=== PATIENT | female | born 1985 | race African-American/Black ===

== ENCOUNTER 2021-05-22 11:18 | Outpatient (CLI) | payer OTHER, SELFPAY | END 2021-05-22 11:19 | disposition home or self-care (01) | LOC: ANHLAB 11:20 | PROVIDERS: PCP Student in an Organized Health Care Education/Training Program; Visit Provider Student in an Organized Health Care Education/Training Program | DX: O20.9 Hemorrhage in early pregnancy, unspecified (principal); Z3A.00 Weeks of gestation of pregnancy not specified | CPT/HCPCS: 36415; 84702 ==

== ENCOUNTER 2021-05-24 15:59 | Outpatient (CLI) | payer OTHER, SELFPAY ==
[2021-05-24 16:25] LABS: Alanine Aminotransferase 14 U/L (4-35); Albumin Level 4.2 g/dL (3.5-5.1); Alkaline Phosphatase 99 U/L (38-126); Anion Gap 8 mmol/L (8-16); Aspartate Amino Transferase 21 U/L (14-36); Bilirubin,Total 0.2 mg/dL (0.2-1.3); Blood Urea Nitrogen 10 mg/dL (7-17); Calcium 9.8 mg/dL (8.4-10.2); Carbon Dioxide 24 mmol/L (22-30); Chloride 104 mmol/L (98-107); Estimated Glomerular Filt Rate > 60; Glucose 99 mg/dL (65-110); Potassium 4.2 mmol/L (3.4-5.0); Sodium 136 mmol/L (137-145)
== END 2021-05-24 16:00 | disposition home or self-care (01) ==
LOC: ANHLAB 16:01
PROVIDERS: PCP Student in an Organized Health Care Education/Training Program; Visit Provider Student in an Organized Health Care Education/Training Program
DX: O20.0 Threatened abortion (principal)
CPT/HCPCS: 36415; 80053; 84702

== ENCOUNTER 2021-05-25 09:15 | Outpatient (CLI) | payer OTHER, SELFPAY ==
--- NOTE | ~2021-05-25 | US_ITS ---
EXAMINATION: US OB <=14 wk fetus w TV EXAM DATE: 05/25/2021 10:32 INDICATION: O36.80X0 - with inconclusive viability. 1st trimester. Beta hCG 1700. TECHNIQUE: Pelvic obstetrical transabdominal sonogram was performed by a technologist. There are mu ltiple grayscale and Doppler images available for interpretation. There are no earlier studies of th is gestation for comparison. FINDINGS: Uterus measures 8.7 x 6.0 x 5.4 cm, with suspicion of a 2.4 cm fibroid in the anterior makayla metrium. Endometrial stripe measures 7 mm, within normal limits. There is no intrauterine i dentified. Small to moderate amount of free fluid in the pelvis which appears echogenic, could indica te hematocrit. Right adnexa: The ovary measures 3.9 x 3.2 x 1.7 cm, appears morphologically normal but with contiguo us thick-walled appearing cystic structure, possible tubal gestation sac. No yolk sac or pole i dentified within this. Early intrauterine or recent spontaneous are common causes of elevated beta hCG in absence of intrauterine confirmation. Ultrasound can sometimes arti ntify, but never exclude an ectopic in the setting of positive beta hCG. Follow up as kevin anted clinically with serial beta hCG levels or ultrasound. Ovarian vascular flow confirmed. Left adnexa: The ovary measures 3.2 x 1.8 x 2.2 cm and is morphologically normal. Ovarian vascular fl ow confirmed. IMPRESSION: 1. Thick-walled cystic structure contiguous to right ovary, possible right tubal ectopic . S mall to moderate amount of free pelvic hypoechoic fluid, possible hemoperitoneum. Clinical correlatio n. 2. Fibroid. Reviewed, dictated and finalized at location B. ICAL SPECIALIST IMPRESSION: 1. Thick-walled cystic structure contiguous to right ovary, possible right tuba l ectopic . Small to moderate amount of free pelvic hypoechoic fluid, possible hemoperitoneum. Clinical correlation. 2. Fibroid.
== END 2021-05-25 09:16 | disposition home or self-care (01) ==
LOC: ANHIMG 09:21
PROVIDERS: PCP Family Medicine; Visit Provider Student in an Organized Health Care Education/Training Program
DX: O36.80X0 Pregnancy with inconclusive fetal viability, not applicable or unspecified (principal); D25.9 Leiomyoma of uterus, unspecified; Z3A.00 Weeks of gestation of pregnancy not specified
CPT/HCPCS: 76801; 76817; 96372; J9260

== ENCOUNTER 2021-05-28 12:24 | Outpatient (CLI) | payer OTHER, SELFPAY | END 2021-05-28 12:25 | disposition home or self-care (01) | LOC: ANHOBOP 12:27 | PROVIDERS: PCP Family Medicine; Visit Provider Student in an Organized Health Care Education/Training Program | DX: O00.90 Unspecified ectopic pregnancy without intrauterine pregnancy (principal); Z3A.00 Weeks of gestation of pregnancy not specified | CPT/HCPCS: 36415; 84702 ==

== ENCOUNTER 2021-05-31 16:01 | Outpatient (CLI) | payer OTHER, SELFPAY | END 2021-05-31 16:02 | disposition home or self-care (01) | LOC: ANHLAB 16:03 | PROVIDERS: PCP Family Medicine; Visit Provider Student in an Organized Health Care Education/Training Program | DX: O36.80X1 Pregnancy with inconclusive fetal viability, fetus 1 (principal); Z3A.00 Weeks of gestation of pregnancy not specified | CPT/HCPCS: 36415; 84702 ==

== ENCOUNTER 2021-06-06 14:31 | Outpatient (CLI) | payer OTHER, SELFPAY | END 2021-06-06 14:32 | disposition home or self-care (01) | PROVIDERS: PCP Family Medicine; Visit Provider Student in an Organized Health Care Education/Training Program | DX: O00.90 Unspecified ectopic pregnancy without intrauterine pregnancy (principal); Z3A.00 Weeks of gestation of pregnancy not specified | CPT/HCPCS: 36415; 84702 ==

== ENCOUNTER 2021-06-14 14:41 | Outpatient (CLI) | payer OTHER, SELFPAY | END 2021-06-14 14:42 | disposition home or self-care (01) | LOC: ANHLAB 14:42 | PROVIDERS: PCP Family Medicine; Visit Provider Student in an Organized Health Care Education/Training Program | DX: O00.90 Unspecified ectopic pregnancy without intrauterine pregnancy (principal); Z3A.00 Weeks of gestation of pregnancy not specified | CPT/HCPCS: 36415; 84702 ==

== ENCOUNTER 2021-06-21 14:19 | Outpatient (CLI) | payer OTHER, SELFPAY ==
[2021-06-21 15:33] LABS: Beta HCG Quantitative 229.63 mIU/ML
== END 2021-06-21 14:20 | disposition home or self-care (01) ==
LOC: ANHLAB 14:21
PROVIDERS: PCP Family Medicine; Visit Provider Student in an Organized Health Care Education/Training Program
DX: O00.90 Unspecified ectopic pregnancy without intrauterine pregnancy (principal)
CPT/HCPCS: 36415; 84702

== ENCOUNTER 2021-06-28 13:41 | Outpatient (CLI) | payer OTHER, SELFPAY ==
[2021-06-28 14:48] LABS: Beta HCG Quantitative 116.35 mIU/ML
== END 2021-06-28 13:42 | disposition home or self-care (01) ==
PROVIDERS: PCP Family Medicine; Visit Provider Student in an Organized Health Care Education/Training Program
DX: O36.80X2 Pregnancy with inconclusive fetal viability, fetus 2 (principal); Z3A.14 14 weeks gestation of pregnancy
CPT/HCPCS: 36415; 84702

== ENCOUNTER 2021-08-09 14:51 | Outpatient (RCR) | payer OTHER, SELFPAY ==
[2021-07-12 15:08] LABS: Beta HCG Quantitative 17.08 mIU/ML
[2021-07-27 14:52] LABS: Beta HCG Quantitative 6.06 mIU/ML
[2021-08-09 17:15] LABS: Beta HCG Quantitative < 2.39 mIU/ML
== END 2021-10-10 23:59 | disposition home or self-care (01) ==
LOC: ANHLAB 14:51
PROVIDERS: PCP Family Medicine; Visit Provider Student in an Organized Health Care Education/Training Program
DX: O36.80X0 Pregnancy with inconclusive fetal viability, not applicable or unspecified (principal); Z3A.00 Weeks of gestation of pregnancy not specified
CPT/HCPCS: 36415; 84702

== ENCOUNTER 2021-10-14 08:18 | Outpatient (CLI) | payer OTHER, SELFPAY ==
[2021-10-17 06:54] LABS: Progesterone 29.5 ng/mL (***)
== END 2021-10-14 08:19 | disposition home or self-care (01) ==
LOC: ANHLAB 08:19
PROVIDERS: PCP Family Medicine; Visit Provider Student in an Organized Health Care Education/Training Program
DX: Z87.59 Personal history of other complications of pregnancy, childbirth and the puerperium (principal)
CPT/HCPCS: 36415; 84144; 84702

== ENCOUNTER 2021-10-17 16:18 | Outpatient (RCR) | payer OTHER, SELFPAY | END 2022-01-15 23:59 | disposition home or self-care (01) | LOC: ANHLAB 16:18 | PROVIDERS: PCP Family Medicine; Visit Provider Student in an Organized Health Care Education/Training Program | DX: Z87.59 Personal history of other complications of pregnancy, childbirth and the puerperium (principal) | CPT/HCPCS: 36415; 84702 ==

== ENCOUNTER 2021-10-22 06:42 | Emergency (ER) | payer OTHER, SELFPAY ==
--- NOTE | ~2021-10-22 | US_ITS ---
US OB <=14 wk fetus w TV DATE: 10/22/2021 09:19 INDICATION: Five-week . Abdominal pain, cramping. TECHNIQUE: Real-time imaging via transabdominal and transvaginal approaches COMPARISON: 05/25/2021 obstetrical ultrasound FINDINGS: Uterine fibroids measuring up to 2.8 and 1.6 cm are noted. Intrauterine gestational sac is identified with yolk sac but no pole. Gestational sac size is c onsistent with 5 weeks 3 days +/- 3 days estimated gestational age with BRIGID of 06/21/2022. Right ovary measures 3.6 x 2.9 x 1.8 cm, with vascular flow. Left ovary measures 5.5 x 3.6 x 4.5 cm, with vascular flow. 2.8 x 3.3 x 2.2 cm left ovarian cyst. 2.1 x 1.8 x 1.4 cm apparent ruptured cyst. There is mild free fluid IMPRESSION: Early intrauterine gestation with identification of yolk sac but not pole; sac size consistent with 5 weeks 3 days estimated gestational age Mild free fluid in the pelvis Left ovarian cysts including one probably ruptured cyst Uterine fibroids Reviewed, dictated and finalized at Location A. Reviewed, dictated and finalized at location A. IMPRESSION: Early intrauterine gestation with identification of yolk sac but no t pole; sac size consistent with 5 weeks 3 days estimated gestational age Mild free fluid in the pelvis Left ovarian cysts including one probably ruptured cyst Uterine fibroids
[2021-10-22 06:50] VITALS: BP 117/79; PULSE 86; RESP 18; TEMP 36.2; O2SAT 100
[2021-10-22 07:25] LABS: Appearance Urine Clear (Clear); Bilirubin Urine Negative (Negative); Blood Urine Negative (Negative); Color Urine Yellow (Yellow); Glucose Urine UA Negative (Negative); Ketones Urine 2+ mg/dL (Negative); Leukocyte Esterase Ur Negative LEU/UL (Negative); Nitrate Urine Negative (Negative); Protein Urine Negative (Negative); Specific Grav Ur 1.025 (1.001-1.035); Urobilinogen Urine 0.2 mg/dL (<2.0)
[2021-10-22 07:26] LABS: Add Urine Microscopic? YES
--- NOTE | 2021-10-22 07:27 | ED.ABDPAIN ---
HPI - Abdominal Pain General Chief Complaint: Abdominal Pain Stated Complaint: abd pain, 5 weeks Time Seen by Provider: 10/22/21 06:50 History of Present Illness HPI narrative: 36-year-old female that is 5 weeks presenting to the emergency department for evaluation of acute onset of lower abdominal pain. Patient states she found out approximately 1 week ago that she was . Patient is G3, P1 with 1 prior ectopic back in June. Denies any vaginal bleeding vaginal discharge. Patient denies any pain with urination. Patient denies any associated nausea vomiting or diarrhea. Patient has had no ultrasounds or OB follow-up with this current . Related Data Home Medications Medication Instructions Recorded Confirmed vit no.95-ferrous tablet PO 10/22/21 fumarate 28 mg-folic acid 800 mcg tablet () Allergies Allergy/AdvReac Type Severity Reaction Status Date / Time No Known Allergies Allergy Verified 10/22/21 06:53 Review of Systems Review of Systems: CONSTITUTIONAL: Denies fever, chills, or sweats. EYES: Denies visual changes, redness, or discharge. ENT: Denies rhinorrhea, congestion, sore throat, or otalgia. CARDIOVASCULAR: Denies chest pain, palpitations, or edema. RESPIRATORY: Denies cough or dyspnea. GASTROINTESTINAL: See HPI GENITOURINARY: Denies dysuria or hematuria. SKIN: Denies rash or itching. MUSCULOSKELETAL: Denies back pain, joint pain, or myalgia. NEUROLOGIC: Denies headache, numbness, or weakness. PMFSH Past Medical History Medical History Vaginal delivery Surgical History Surgical History [place] teeth removed Social History Social History Smoking status: Never smoker Alcohol intake: never Exam Narrative: APPEARANCE: Well appearing, no pain, no distress, well-nourished. HEAD: normocephalic, atraumatic. EYES: PERRLA/EOMI, conjunctivae clear. NECK: Supple. No adenopathy, no masses. RESPIRATORY: Airway patent, respirations nonlabored. Clear to auscultation bilaterally, no rales, rhonchi, wheezing. CARDIOVASCULAR: Regular rate and rhythm without murmurs rubs or gallops. ABDOMINAL: Soft, nontender, nondistended, normal bowel sounds MUSCULOSKELETAL: Moves all extremities. Strength/ROM intact, No edema, No calf tenderness. NEURO: Alert. Cranial nerves II through XII intact. Good gait. Good coordination SKIN: Warm, dry. Normal Color Course Course Emergency Course: Patient reports her pain has improved. Patient denies any complaints at this time. Patient was updated the results of her ultrasound and encouraged to have close follow-up with her NOVELTY CHAIN MAKER Dr Josue. Vital Signs Vital signs: Vital Signs Temperature 97.2 F L 10/22/21 06:50 Pulse Rate 86 10/22/21 06:50 Respiratory Rate 18 10/22/21 06:50 Blood Pressure 117/79 10/22/21 06:50 Pulse Oximetry 100 10/22/21 06:50 Oxygen Delivery Room Air 10/22/21 06:50 Temperature 97.2 F L 10/22/21 06:50 Pulse Rate 75 10/22/21 10:28 Respiratory Rate 18 10/22/21 10:28 Blood Pressure 117/65 10/22/21 10:28 Pulse Oximetry 100 10/22/21 10:28 Oxygen Delivery Room Air 10/22/21 06:50 MDM - Abdominal Pain Lab Data Attestation: I reviewed the patient's lab results. Result diagrams: 10/22/21 07:25 10/22/21 07:25 Labs: Lab Results 10/22/21 10/22/21 10/22/21 Range/Units 07:13 07:25 07:25 WBC 12.1 H (4.5-10.0) K/mm3 RBC 4.54 (4.2-5.4) M/mm3 Hgb 11.6 L (12.0-15.0) g/dL Hct 34.4 L (37.0-47.0) % MCV 75.8 L (80-100) fl MCH 25.6 L (26-34) pg MCHC 33.7 (32-36) g/dl RDW 16.4 H (11.5-14.5) % Plt Count 434 H (150-375) k/mm3 MPV 8.7 (7.4-10.4) fl Immature Gran % (Auto) 0.6 H (0-0.5) % Neut % (Auto)
[2021-10-22 07:28] LABS: Bacteria Urine Trace /hpf; Mucus Urine Rare /lpf; Squamous Epithelial Cell Urine Occasional /hpf (Few); WBC Urine 0-3 /hpf
[2021-10-22 07:31] LABS: Basophils Absolute Auto 0.1 K/mm3 (0.0-0.1); Basophils Percent Auto 0.4 % (0.2-1.2); Eosinophils Absolute Auto 0.1 K/mm3 (0-0.3); Eosinophils Percent Auto 1.1 % (0-4.4); Hematocrit 34.4 % (37.0-47.0); Hemoglobin 11.6 g/dL (12.0-15.0); Immature Granulocyte Absolute 0.07 K/mm3 (0.00-0.031); Immature Granulocyte Percent A 0.6 % (0-0.5); Lymphocytes Absolute Auto 2.83 K/mm3 (0.9-3.2); Lymphocytes Percent Auto 23.4 % (18.3-44.2); Mean Corpuscular HGB Conc 33.7 g/dl (32-36); Mean Corpuscular Hemoglobin 25.6 pg (26-34); Mean Corpuscular Volume 75.8 fl (80-100); Mean Platelet Volume 8.7 fl (7.4-10.4); Monocytes Absolute Auto 0.6 K/mm3 (0.1-0.6); Monocytes Percent Auto 4.6 % (2.6-8.5); Neutrophils Absolute Auto 8.5 K/mm3 (1.3-6.7); Neutrophils Percent Auto 69.9 % (45.5-73.1); Platelet Count Result 434 k/mm3 (150-375); Red Blood Count 4.54 M/mm3 (4.2-5.4); Red Cell Distribution Width 16.4 % (11.5-14.5); White Blood Count 12.1 K/mm3 (4.5-10.0)
[2021-10-22 07:39] LABS: Alanine Aminotransferase 16 U/L (6-35); Albumin Level 4.2 g/dL (3.5-5.1); Alkaline Phosphatase 94 U/L (38-126); Anion Gap 5 mmol/L (8-16); Aspartate Amino Transferase 25 U/L (14-36); Bilirubin,Total 0.2 mg/dL (0.2-1.3); Blood Urea Nitrogen 11 mg/dL (7-17); Calcium 8.9 mg/dL (8.4-10.2); Carbon Dioxide 22 mmol/L (22-30); Chloride 104 mmol/L (98-107); Estimated Glomerular Filt Rate > 60; Glucose 120 mg/dL (65-110); Potassium 3.9 mmol/L (3.4-5.0); Sodium 131 mmol/L (137-145)
[2021-10-22] MEDS: SODIUM CHLORIDE 0.9% IV 1,000 ML 999 ML IV CONT (08:47)
[2021-10-22 10:28] VITALS: BP 117/65; PULSE 75; RESP 18; O2SAT 100
== END 2021-10-22 10:31 | disposition home or self-care (01) ==
PROVIDERS: Emergency Provider Emergency Medicine; PCP Family Medicine
DX: O26.891 Other specified pregnancy related conditions, first trimester (principal); R10.30 Lower abdominal pain, unspecified; O34.81 Maternal care for other abnormalities of pelvic organs, first trimester; N83.202 Unspecified ovarian cyst, left side; O99.891 Other specified diseases and conditions complicating pregnancy; D25.9 Leiomyoma of uterus, unspecified; Z3A.01 Less than 8 weeks gestation of pregnancy
CPT/HCPCS: 36415; 76801; 76817; 80053; 81001; 84702; 85025; 96360; 99284; J7030

== ENCOUNTER 2021-11-07 15:05 | Outpatient (CLI) | payer OTHER, SELFPAY ==
--- NOTE | ~2021-11-07 | US_ITS ---
EXAMINATION: US OB <= 14 weeks fetus DATE: 11/07/2021 15:39 INDICATION: Evaluate viability. History of uterine fibroids. TECHNIQUE: Real-time transabdominal obstetric ultrasound. FINDINGS: Comparison ultrasound dated 10/22/2021 The uterus measures 11.1 x 6.6 x 7.7 cm.. There is an intrauterine gestational sac, with pole i dentified. The crown rump length measures 1.01 cm, which correlates with a estimated gestational age of 7 weeks 1 day. heart tones are identified measuring 150 BPM. There are left ovarian cysts , largest measuring up to 3 cm greatest dimension. Right ovary is not visualized. IMPRESSION: 1. SL IUP with an EGA of 7 weeks, 1 days (EDC by current ultrasound of 06/25/2022). 2: Left ovarian cysts, largest measuring 3 cm, likely corpus luteal cysts. Reviewed, dictated and finalized at location A. IMPRESSION: 1. SL IUP with an EGA of 7 weeks, 1 days (EDC by current ultrasound of ). 2: Left ovarian cysts, largest measuring 3 cm, likely corpus luteal cysts.
== END 2021-11-07 15:06 | disposition home or self-care (01) ==
PROVIDERS: PCP Family Medicine; Visit Provider Student in an Organized Health Care Education/Training Program
DX: Z34.91 Encounter for supervision of normal pregnancy, unspecified, first trimester (principal); Z3A.01 Less than 8 weeks gestation of pregnancy
CPT/HCPCS: 76801

== ENCOUNTER 2021-11-22 14:57 | Outpatient (CLI) | payer OTHER, SELFPAY ==
[2021-11-22 19:16] LABS: Basophils Percent Auto 0.2 % (0.2-1.2); Eosinophils Absolute Auto 0.1 K/mm3 (0-0.3); Eosinophils Percent Auto 0.5 % (0-4.4); Hematocrit 34.3 % (37.0-47.0); Hemoglobin 11.9 g/dL (12.0-15.0); Immature Granulocyte Absolute 0.04 K/mm3 (0.00-0.031); Immature Granulocyte Percent A 0.3 % (0-0.5); Lymphocytes Absolute Auto 3.48 K/mm3 (0.9-3.2); Lymphocytes Percent Auto 29.2 % (18.3-44.2); Mean Corpuscular HGB Conc 34.7 g/dl (32-36); Mean Corpuscular Hemoglobin 25.6 pg (26-34); Mean Corpuscular Volume 73.9 fl (80-100); Mean Platelet Volume 9.6 fl (7.4-10.4); Monocytes Absolute Auto 0.5 K/mm3 (0.1-0.6); Monocytes Percent Auto 4.4 % (2.6-8.5); Neutrophils Absolute Auto 7.8 K/mm3 (1.3-6.7); Neutrophils Percent Auto 65.4 % (45.5-73.1); Platelet Count Result 409 k/mm3 (150-375); Red Blood Count 4.64 M/mm3 (4.2-5.4); Red Cell Distribution Width 16.8 % (11.5-14.5); White Blood Count 11.9 K/mm3 (4.5-10.0)
[2021-11-22 20:01] LABS: Thyroid Stimulating Hormone 0.215 uIU/mL (0.465-4.680)
[2021-11-22 20:08] LABS: Vitamin D 25 Hydroxy 38.8 ng/mL
[2021-11-22 20:10] LABS: HIV 1/2 Ab P24 Ag Result Negative (Negative)
[2021-11-22 20:28] LABS: Hepatitis B Surface Antigen Negative (Negative)
[2021-11-22 20:40] LABS: Hepatitis C Virus Antibody Negative (Negative)
[2021-11-23 07:53] LABS: Rapid Plasma Reagin Non-Reactive (NonReactive)
[2021-11-28 13:53] LABS: Hematocrit 36.9 % (35.0-45.0); Hemoglobin 11.6 g/dL (11.7-15.5); MCH 25.1 pg (27.0-33.0); MCV 79.7 fL (80.0-100.0); RDW 17.8 % (11.0-15.0); Red Blood Cell Count 4.63 Mill/uL (3.80-5.10)
[2021-12-06 18:16] LABS: CF Result NEGATIVE (NEGATIVE); Ethnicity NG
== END 2021-11-22 14:58 | disposition home or self-care (01) ==
PROVIDERS: PCP Family Medicine; Visit Provider Student in an Organized Health Care Education/Training Program
DX: Z34.91 Encounter for supervision of normal pregnancy, unspecified, first trimester (principal); Z3A.01 Less than 8 weeks gestation of pregnancy; N83.292 Other ovarian cyst, left side
CPT/HCPCS: 36415; 81220; 82306; 83021; 84443; 85025; 86592; 86703; 86762; 86787; 86803; 86850; 86900; 86901; 87086; 87340; G0432

== ENCOUNTER 2021-12-15 11:37 | Outpatient (CLI) | payer OTHER, SELFPAY ==
[2021-12-15 11:49] LABS: Immature Reticulocyte Fraction 30.7 % (3.0-15.9); Reticulocyte Hemoglobin Conten 31.9 pg (28.2-35.7); Reticulocyte Percent 2.31 % (0.7-4.3)
[2021-12-15 12:15] LABS: Iron 87 ug/dL (37-170)
[2021-12-15 12:27] LABS: Percent Iron Saturation 18 % (20-50)
[2021-12-15 12:49] LABS: Ferritin 8.83 ng/mL (6.24-137)
== END 2021-12-15 11:38 | disposition home or self-care (01) ==
LOC: ANHLAB 11:38
PROVIDERS: PCP Family Medicine; Visit Provider Student in an Organized Health Care Education/Training Program
DX: D64.9 Anemia, unspecified (principal)
CPT/HCPCS: 36415; 82728; 83540; 83550; 85046

== ENCOUNTER 2022-03-17 09:35 | Outpatient (CLI) | payer OTHER, SELFPAY ==
[2022-03-17 11:03] LABS: Basophils Percent Auto 0.3 % (0.2-1.2); Eosinophils Absolute Auto 0.1 K/mm3 (0-0.3); Eosinophils Percent Auto 0.7 % (0-4.4); Hematocrit 34.2 % (37.0-47.0); Hemoglobin 11.8 g/dL (12.0-15.0); Immature Granulocyte Absolute 0.22 K/mm3 (0.00-0.031); Immature Granulocyte Percent A 1.5 % (0-0.5); Lymphocytes Absolute Auto 2.85 K/mm3 (0.9-3.2); Lymphocytes Percent Auto 19.5 % (18.3-44.2); Mean Corpuscular HGB Conc 34.5 g/dl (32-36); Mean Corpuscular Hemoglobin 28.4 pg (26-34); Mean Corpuscular Volume 82.2 fl (80-100); Mean Platelet Volume 9.6 fl (7.4-10.4); Monocytes Absolute Auto 0.6 K/mm3 (0.1-0.6); Neutrophils Absolute Auto 10.9 K/mm3 (1.3-6.7); Platelet Count Result 267 k/mm3 (150-375); Red Blood Count 4.16 M/mm3 (4.2-5.4); White Blood Count 14.7 K/mm3 (4.5-10.0)
[2022-03-17 11:15] LABS: Glucose 1 Hour PP 50gm Dose 185 mg/dL
== END 2022-03-17 09:36 | disposition home or self-care (01) ==
LOC: ANHLAB 09:36
PROVIDERS: PCP Family Medicine; Visit Provider Student in an Organized Health Care Education/Training Program
DX: Z34.82 Encounter for supervision of other normal pregnancy, second trimester (principal)
CPT/HCPCS: 36415; 82947; 85025

== ENCOUNTER 2022-03-20 07:42 | Outpatient (CLI) | payer OTHER, SELFPAY ==
[2022-03-20 08:12] LABS: Glucose Fasting Gestational 108 mg/dL (>/=95)
[2022-03-20 09:43] LABS: Glucose 1 Hour Gest 211 mg/dL (>/=180)
[2022-03-20 10:48] LABS: Glucose 2 Hour Gest 200 mg/dL (>/= 155)
[2022-03-20 11:45] LABS: Glucose 3 Hour Gest 119 mg/dL (>/=140)
== END 2022-03-20 07:43 | disposition home or self-care (01) ==
LOC: ANHLAB 07:43
PROVIDERS: PCP Family Medicine; Visit Provider Student in an Organized Health Care Education/Training Program
DX: O99.810 Abnormal glucose complicating pregnancy (principal); Z3A.00 Weeks of gestation of pregnancy not specified
CPT/HCPCS: 36415; 82951; 82952

== ENCOUNTER 2022-06-16 10:17 | Outpatient (RCR) | payer OTHER, SELFPAY ==
[2022-05-09 16:22] VITALS: BP 119/60; PULSE 89
[2022-05-19 13:29] VITALS: BP 117/58; PULSE 97
--- NOTE | 2022-05-26 11:29 | PM.OBPNVD ---
OB - PN: Subj Subjective Date/time seen: 05/26/22 11:20 Patient comments: no complaints Narrative: Pt here For scheduled NST, BPP, JEET due to gestational diabetes. She is currently 36 weeks gestation. She reports great movement. She has a reactive NST. Her BPP is 8/8. Her JEET was 6.74 cm, Which is a decrease from 11 1 week ago[address] Consult to [address] Dsouza. Recommend IOL due to oligohydramnios. Discussed these findings and recommendations with patient. She declines induction at this time. also offered overnight observation with NSTs, and oral or IV hydration. She also declines these options. Discussed possible etiology of oligohydramnios and possible outcomes on the . Patient agrees to increase p.o. hydration over the next 24 hours and return tomorrow morning for repeat NST, JEET, and BPP. thoroughly discussed kick counts. Instructed patient to do kick counts 3 times a day and report to Labor and delivery for any significant decrease or for any episodes of no movement over 1 hour. She verbalizes understanding and intends to return tomorrow morning. OB - PN: Obj Data Imaging Radiologist's impression: Impressions Obstetrics US/Biophysical Profile 05/26/22 11:04 IMPRESSION: 1. Single living fetus in vertex presentation. 2. Biophysical profile 8 out of 8. 3. Oligohydramnios. OB - PN A/P Time Spent With Patient Time: Total time spent is greater than 50% in coordination of care (as documented) at patient's floor/unit and/or counseling patient:
--- NOTE | 2022-05-26 11:35 | PM.OBTRLD ---
OB - Triage/Final Diagnosis Visit Information Reason for evaluation: other (Scheduled NST, BPP, and JEET. See OB note. ) Comments/Additional reasons for admission: I have assessed the risk for this patient, Ze Storey, and determined that she would benefit from observation care.
[2022-05-26 12:15] VITALS: BP 115/60; PULSE 99
[2022-05-27 14:46] VITALS: BP 107/66; PULSE 90
[2022-05-30 16:00] VITALS: BP 111/66; PULSE 79
[2022-06-02 12:32] VITALS: BP 118/58; PULSE 92
[2022-06-06 14:52] VITALS: BP 112/54; PULSE 96
--- NOTE | 2022-06-06 15:45 | PC.NURSE ---
Called Dr. Myers with ultrasound report. September D/C home.
[2022-06-09 13:34] VITALS: BP 124/57; PULSE 105
[2022-06-13 11:15] VITALS: BP 115/63; PULSE 92
--- NOTE | 2022-06-13 11:55 | PC.NURSE ---
Dr. Myers informed of variable decel that occurred late in contraction followed by 20 mins of minimal variability, but now reactive. Pt has an JEET scheduled. Discussed contractions and no further decels. wants pt to be monitored for 2 hrs from her decel and add a BPP. OK to let pt eat.
--- NOTE | 2022-06-13 14:20 | PC.NURSE ---
Pt back from U/S and monitor reapplied. BPP 12/11.
--- NOTE | 2022-06-13 14:51 | PC.NURSE ---
Dr. Myers informed BPP 12/11 and JEET 16.8 cm. No further decels. OK to discharge to home and keep NST's and JEET's twice weekly.
[2022-06-13 14:52] VITALS: BP 115/63; PULSE 86
--- NOTE | ~2022-06-16 | US_ITS ---
EXAMINATION: US OB limited DATE: 05/09/2022 16:09 INDICATION: Gestational diabetes, evaluate JEET. TECHNIQUE: Real-time ultrasound of the pelvis was performed. COMPARISON: 11/07/2021. FINDINGS: There is a single living fetus in vertex presentation, longitudinal lie. The placenta is normal and fundal. heart rate is 134 beats per minute (bpm). The amniotic fluid index is 10.6 cm, which is low-normal (5th to 95th percentile range is 8.3 to 24.5 cm). IMPRESSION: 1. Single living fetus in vertex presentation. 2. Fundal placenta. 3. JEET 10.6 cm. Reviewed, dictated and finalized at location K. TH AND SAFETY COORDINATOR
--- NOTE | ~2022-06-16 | US_ITS ---
US OB limited DATE: 06/16/2022 11:10 INDICATION: Gestational diabetes mellitus. Check amniotic fluid index. TECHNIQUE: Real-time imaging and Doppler analysis COMPARISON: June 13, 2022 Limited obstetrical ultrasound examination with biophysical profile FINDINGS: Live coleman intrauterine gestation, fetus in longitudinal lie, vertex presentation. Feta l heart rate of 143 bpm. Posterior placenta. Subjectively normal amount of amniotic fluid. Amniotic fluid index measures 15.6 cm, within normal range. (5th percentile JEET: 7.2 cm; 95th percent ile JEET: 22.6 cm). IMPRESSION: Normal amniotic fluid index of 15.6 cm Reviewed, dictated and finalized at Location A. Reviewed, dictated and finalized at location A.
--- NOTE | ~2022-06-16 | US_ITS ---
EXAMINATION: US OB limited w BPP DATE: 05/27/2022 14:34 INDICATION: Gestational diabetes, oligohydramnios, evaluate JEET and BPP. TECHNIQUE: Real-time ultrasound of the pelvis was performed. COMPARISON: 05/26/2022. FINDINGS: There is a single living fetus in vertex presentation, longitudinal lie. The placenta is posterior. heart rate is 127 beats per minute (bpm). The amniotic fluid index is 12.99 cm, which is normal (5th to 95th percentile range is 7.7 to 24.9 cm). Biophysical profile performed by the technologist: breathing (30 sec sustained breathing in 30 minutes): 0 out of 2 movement (3 gross body movements in 30 minutes: 2 out of 2 tone (one episode of eocziiz-hqsthsoso-wsshfyd limb movement): out of 2 Amniotic fluid pocket (2 cm): 2 out of 2 Total score: 6 out of 8 IMPRESSION: 1. Single living fetus in vertex presentation. 2. Biophysical profile 6 out of 8 3. Borderline low amniotic fluid volume. Reviewed, dictated and finalized at location K. DRY AID
--- NOTE | ~2022-06-16 | US_ITS ---
EXAMINATION: US OB limited w BPP DATE: 05/26/2022 11:00 INDICATION: Gestational diabetes. Third trimester. TECHNIQUE: Real-time pelvic ultrasound was performed. COMPARISON: Ultrasound 05/19/2022 FINDINGS: There is a single living fetus in vertex presentation. The placenta is posterior. heart rate i s 141 beats per minute (bpm). The amniotic fluid index is 6.7 cm, which is low (5th percentile is 7.7 cm). Biophysical profile performed by the technologist: breathing (30 sec sustained breathing in 30 minutes): 2 out of 2 movement (3 gross body movements in 30 minutes): 2 out of 2 tone (one episode of pqrfdsc-roggpovtn-sktzuvt limb movement): 2 out of 2 Amniotic fluid pocket (2 cm): 2 out of 2 Total score: 8 out of 8 IMPRESSION: 1. Single living fetus in vertex presentation. 2. Biophysical profile 8 out of 8. 3. Oligohydramnios. Reviewed, dictated and finalized at location A. NCE ASSEMBLER
--- NOTE | ~2022-06-16 | US_ITS ---
EXAMINATION: US OB limited w BPP DATE: 06/02/2022 12:55 OPERATOR BEARER SYSTEMS INDICATION: Gestational diabetes TECHNIQUE: Real-time transabdominal obstetric ultrasound. FINDINGS: Comparison to ultrasound dated 05/30/2022 There is a single living fetus in vertex presentation. The placenta is posterior without placenta pr evia. cardiac activity and movement is noted with a heart rate of 150 beats per minute. A FI measures 11.7 cm. Biophysical profile: breathin of 2 movement: 2 of 2 tone: 2 of 2 Amniotic flud pocket: 2 of 2 Total score: 8 of 8 IMPRESSION: 1. Single living intrauterine in vertex presentation. 2: Total biophysical profile score of 8/8. 3: Normal JEET measures 11.7 cm. Reviewed, dictated and finalized at location A. ATOR BEARER SYSTEMS
--- NOTE | ~2022-06-16 | US_ITS ---
EXAMINATION: US OB follow up w BPP DATE: 06/06/2022 15:33 INDICATION: Biophysical profile, amniotic fluid index assessment, and estimated weight during t hird trimester TECHNIQUE: Real-time pelvic ultrasound was performed. The interpreting radiologist was not present fo r the study. COMPARISON: 06/02/2022 FINDINGS: There is a single living fetus in vertex presentation. The placenta is fundal. heart rate is 13 7 beats per minute (bpm). The amniotic fluid index is 13.3 cm which is normal (normal range: 7.5 cm t o 24.4 cm). Biophysical profile performed by the technologist: breathing (30 sec sustained breathing in 30 minutes): 2 out of 2 movement (3 gross body movements in 30 minutes): 2 out of 2 tone (one episode of magohup-mrpbljzyo-xjxfjxv limb movement): 2 out of 2 Amniotic fluid pocket (2 cm): 2 out of 2 Total score: 8 out of 8 The following biometric data were obtained: Biparietal diameter (BPD): 9.4 cm; head circumference (HC): 32.9 cm; abdominal circumference (AC): 35 .7 cm; femur length (FL): 7.4 cm. These measurements are concordant. Estimated weight is 3621 g +/- 543 g, which correlates with the 88th percentile when 06/23/2021 is used as estimated date of delivery. As single measurements, these parameters are each equal to the following estimated gestational ages w ith ranges of +/- 2 standard deviations: BPD: 38 weeks 3 days +/- 3 weeks 1 days. HC: 37 weeks 3 days +/- 2 weeks 5 days. AC: 39 weeks 5 days +/- 3 weeks 0 days. FL: 38 weeks 0 days +/- 3 weeks 1 days. estimated gestational age based solely on measurements from this exam is 38 weeks 3 days +/- 2 weeks 5 days. IMPRESSION: 1. Single living fetus in vertex presentation. 2. Biophysical profile 8 out of 8. 3. Normal amniotic fluid index. 4. Estimated weight is 3621 g +/- 543 g, which correlates with the 88th percentile when 06/23/19 22 is used as estimated date of delivery. Reviewed, dictated and finalized at location B. ING UNIT OPERATOR IMPRESSION: 1. Single living fetus in vertex presentation. 2. Biophysical profile 8 out of 8. 3. Normal amniotic fluid index. 4. Estimated weight is 3621 g +/- 543 g, which correlates with the 88th p ercentile when 06/23/2021 is used as estimated date of delivery.
--- NOTE | ~2022-06-16 | US_ITS ---
EXAMINATION: US OB limited DATE: 06/09/2022 13:27 INDICATION: Gestational diabetes during third trimester TECHNIQUE: Real-time ultrasound of the pelvis was performed. The interpreting radiologist was not pre sent for the study. COMPARISON: 06/06/2022 FINDINGS: There is a single living fetus in vertex presentation. The placenta is fundal/posterior. Fe ann marie cardiac activity and movement are noted. heart rate is 128 beats per minute (bpm). Th e amniotic fluid index is 11.4 cm which is normal (normal range: 7.3 cm to 23.9 cm). IMPRESSION: 1. Single living fetus in vertex presentation. 2. Normal amniotic fluid index. Reviewed, dictated and finalized at location A. AND POULTRY INSPECTOR
--- NOTE | ~2022-06-16 | US_ITS ---
EXAMINATION: US OB limited w BPP DATE: 06/13/2022 14:47 INDICATION: Gestational diabetes during third trimester TECHNIQUE: Real-time pelvic ultrasound was performed. The interpreting radiologist was not present fo r the study. COMPARISON: None. FINDINGS: There is a single living fetus in vertex presentation. The placenta is fundal. heart rate is 14 4 beats per minute (bpm). The amniotic fluid index is 16.8 cm which is normal (normal range: 7.3 cm c m to 23.9 cm cm). Biophysical profile performed by the technologist: breathing (30 sec sustained breathing in 30 minutes): 2 out of 2 movement (3 gross body movements in 30 minutes): 2 out of 2 tone (one episode of oriwfxo-qtepevfdk-wrljzxz limb movement): 2 out of 2 Amniotic fluid pocket (2 cm): 2 out of 2 Total score: 8 out of 8 IMPRESSION: 1. Single living fetus in vertex presentation. 2. Biophysical profile 8 out of 8. 3. Normal amniotic fluid index. Reviewed, dictated and finalized at location B. NG CONSULTANT
--- NOTE | ~2022-06-16 | US_ITS ---
EXAMINATION: US OB limited DATE: 05/19/2022 13:54 INDICATION: Gestational diabetes. TECHNIQUE: Real-time ultrasound of the pelvis was performed. The interpreting radiologist was not pre sent for the study. COMPARISON: None. FINDINGS: There is a single living fetus in vertex presentation. The placenta is posterior fundal. heart rate is 131 beats per minute (bpm). The amniotic fluid index is 11.8 cm, which is normal (5th%-95%: 7.9-24.9 cm at 35 weeks estimated gestational age). IMPRESSION: 1. Single living fetus in vertex presentation with heart rate of 131 bpm. 2. Normal amniotic fluid index of 11.8 cm. Reviewed, dictated and finalized at location A. R TANKER DRIVER IMPRESSION: 1. Single living fetus in vertex presentation with heart rate of 131 bpm . 2. Normal amniotic fluid index of 11.8 cm.
--- NOTE | ~2022-06-16 | US_ITS ---
EXAMINATION: US OB limited w BPP DATE: 05/30/2022 14:44 INDICATION: Gestational diabetes during third trimester TECHNIQUE: Real-time pelvic ultrasound was performed. The interpreting radiologist was not present fo r the study. COMPARISON: None. FINDINGS: There is a single living fetus in vertex presentation. The placenta is posterior. heart rate i s 128 beats per minute (bpm). Biophysical profile performed by the technologist: breathing (30 sec sustained breathing in 30 minutes): 0 out of 2 movement (3 gross body movements in 30 minutes): 2 out of 2 tone (one episode of xwdpvur-wvsmffhxh-hfjrkxt limb movement): 2 out of 2 Amniotic fluid pocket (2 cm): 2 out of 2 Total score: 6 out of 8 IMPRESSION: 1. Single living fetus in vertex presentation with heart rate of 128 bpm. 2. Biophysical profile 6 out of 8 with no points given for 30 seconds of observed sustained br eathing over the course of 30 minutes observation. Reviewed, dictated and finalized at location B. R RECRUITMENT MANAGER IMPRESSION: 1. Single living fetus in vertex presentation with heart rate of 128 bpm. 2. Biophysical profile 6 out of 8 with no points given for 30 seconds of obser jaylin sustained breathing over the course of 30 minutes observation.
[2022-06-16 10:50] VITALS: BP 121/65; PULSE 91
== END 2022-07-21 19:53 | disposition home or self-care (01) ==
LOC: ANHOBOP 10:17
PROVIDERS: PCP Family Medicine; Visit Provider Obstetrics & Gynecology
DX: O24.419 Gestational diabetes mellitus in pregnancy, unspecified control (principal); Z3A.33 33 weeks gestation of pregnancy; Z3A.35 35 weeks gestation of pregnancy; O41.03X0 Oligohydramnios, third trimester, not applicable or unspecified; Z3A.36 36 weeks gestation of pregnancy; Z3A.37 37 weeks gestation of pregnancy; Z3A.38 38 weeks gestation of pregnancy; Z3A.39 39 weeks gestation of pregnancy
CPT/HCPCS: 59025; 76815; 76816; 76819

== ENCOUNTER 2022-06-16 21:05 | Inpatient (IN) | payer OTHER, SELFPAY ==
[2022-06-16] VITALS (45 sets, daily range): BP systolic 113–144; BP diastolic 56–84; PULSE 78–117; RESP 18; TEMP 36.3; O2SAT 98–100; BMI 31.2
--- NOTE | 2022-06-16 21:25 | LDADM ---
This patient, Ze Storey, was admitted to Labor/Delivery/Recovery 105 on 06/16/22 at 21:05. Plans for labor, pain management and were discussed with patient. Patient/family oriented to hospital policies and general routines including ID bracelet, bed and alarms, visiting hours, pain management, procedures, bathroom and other care routines, personal items, smoking policy, room service/diet and guest tray routines, infant security routines, and visiting hours. Patient/Family are encouraged to report perceived risks to care and to ask questions if they do not understand what they are told or what they should do. See OBIX for further documentation.
[2022-06-16 21:31] LABS: Basophils Percent Auto 0.3 % (0.2-1.2); Eosinophils Percent Auto 0.3 % (0-4.4); Hematocrit 36.7 % (37.0-47.0); Hemoglobin 13.3 g/dL (12.0-15.0); Immature Granulocyte Absolute 0.19 K/mm3 (0.00-0.031); Immature Granulocyte Percent A 1.5 % (0-0.5); Lymphocytes Absolute Auto 2.45 K/mm3 (0.9-3.2); Lymphocytes Percent Auto 18.8 % (18.3-44.2); Mean Corpuscular HGB Conc 36.2 g/dl (32-36); Mean Corpuscular Hemoglobin 29.5 pg (26-34); Mean Corpuscular Volume 81.4 fl (80-100); Monocytes Absolute Auto 0.6 K/mm3 (0.1-0.6); Monocytes Percent Auto 4.5 % (2.6-8.5); Neutrophils Absolute Auto 9.7 K/mm3 (1.3-6.7); Neutrophils Percent Auto 74.6 % (45.5-73.1); Platelet Count Result 274 k/mm3 (150-375); Red Blood Count 4.51 M/mm3 (4.2-5.4)
[2022-06-16] MEDS: LACTATED RINGERS 1,000 ML 125 ML IV CONT ×2 (21:36→22:19)
[2022-06-16 21:43] LABS: Alanine Aminotransferase 21 U/L (6-35); Albumin Level 3.9 g/dL (3.5-5.1); Alkaline Phosphatase 153 U/L (38-126); Anion Gap 10 mmol/L (8-16); Aspartate Amino Transferase 35 U/L (14-36); Bilirubin,Total 0.4 mg/dL (0.2-1.3); Blood Urea Nitrogen 11 mg/dL (7-17); Calcium 9.6 mg/dL (8.4-10.2); Carbon Dioxide 20 mmol/L (22-30); Chloride 105 mmol/L (98-107); Estimated CRCL calculation 85 ml/min; Estimated Glomerular Filt Rate > 60; Glucose 124 mg/dL (65-110); Potassium 4.1 mmol/L (3.4-5.0); Sodium 135 mmol/L (137-145)
--- NOTE | 2022-06-16 21:55 | WPDANESEPP ---
Anes - Eval Pre Procedure Procedure: Labor Epidural Date/Time: 06/16/22 21:55 Surgeon: Lianna Preop Diagnosis: Pain c contractions Pre Op Diagnosis: IOL Patient Data Age: 37 Gender: F Height: 1.6 m Weight: 80 kg Last Vital Signs Temp 36.3 C L 06/16/22 21:30 Pulse 84 06/16/22 21:46 Resp 18 06/16/22 21:30 BP 121/78 06/16/22 21:46 Pulse Ox 100 06/16/22 21:54 O2 Del Method Room Air 06/16/22 21:23 Allergies Allergy/AdvReac Type Severity Reaction Status Date / Time No Known Allergies Allergy Verified 06/15/22 10:20 Home Medications Medication Instructions Recorded Confirmed Type ferrous sulfate 325 mg (65 mg 325 mg PO DAILY #90 tabs 12/21/21 06/16/22 Rx iron) tablet blood sugar diagnostic (OneTouch #100 ea 03/21/22 06/16/22 Rx Verio test strips) blood-glucose meter (OneTouch #1 ea 03/21/22 06/16/22 Rx Verio Flex Meter) lancets 33 gauge (Lite Touch #100 ea 03/21/22 06/16/22 Rx Lancets) vit no.95-ferrous 1 tablet PO DAILY 06/09/22 06/16/22 History fumarate 28 mg-folic acid 800 mcg tablet () Laboratory Tests 06/16/22 06/16/22 06/16/22 21:24 21:24 21:24 WBC 13.0 K/mm3 H K/mm3 (4.5-10.0) RBC 4.51 M/mm3 M/mm3 (4.2-5.4) Hgb 13.3 g/dL g/dL (12.0-15.0) Hct 36.7 % L % (37.0-47.0) MCV 81.4 fl fl (80-100) MCH 29.5 pg pg (26-34) MCHC 36.2 g/dl H g/dl (32-36) RDW 15.0 % H % (11.5-14.5) Plt Count 274 k/mm3 k/mm3 (150-375) MPV 10.0 fl fl (7.4-10.4) Immature Gran % (Auto) 1.5 % H % (0-0.5) Neut % (Auto) 74.6 % H % (45.5-73.1) Lymph % (Auto) 18.8 % % (18.3-44.2) Davis % (Auto) 4.5 % % (2.6-8.5) Eos % (Auto) 0.3 % % (0-4.4) Baso % (Auto) 0.3 % % (0.2-1.2) Lymph # (Auto) 2.45 K/mm3 K/mm3 (0.9-3.2) Davis # (Auto) 0.6 K/mm3 K/mm3 (0.1-0.6) Eos # (Auto) 0.0 K/mm3 K/mm3 (0-0.3) Baso # (Auto) 0.0 K/mm3 K/mm3 (0.0-0.1) Abs Immat Gran (auto) 0.19 K/mm3 H K/mm3 (0.00-0.031) Absolute Neuts (auto) 9.7 K/mm3 H K/mm3 (1.3-6.7) Absolute Nucleated RBC 0.0 K/mm3 K/mm3 (0.0-0.012) Nucleated RBC % 0.0 % % (0.0-0.2) Sodium 135 mmol/L L mmol/L (137-145) Potassium 4.1 mmol/L mmol/L (3.4-5.0) Chloride 105 mmol/L mmol/L (98-107) Carbon Dioxide 20 mmol/L L mmol/L (22-30) Anion Gap 10 mmol/L mmol/L (8-16) BUN 11 mg/dL mg/dL (7-17) Creatinine 0.80 mg/dL mg/dL (0.7-1.0) Estim Creat Clear Calc 85 ml/min ml/min Estimated GFR > 60 (59 - ) Glucose 124 mg/dL H mg/dL (65-110) Calcium 9.6 mg/dL mg/dL (8.4-10.2) Total Bilirubin 0.4 mg/dL mg/dL (0.2-1.3) AST 35 U/L U/L (14-36) ALT 21 U/L U/L (6-35) Alkaline Phosphatase 153 U/L H U/L (38-126) Total Protein 7.0 g/dL g/dL (6.3-8.2) Albumin 3.9 g/dL g/dL (3.5-5.1) RPR Pending Patient hx anesthesia problems: none Family hx anesthesia problems: none Results Review: All pre-operative results and documents have been reviewed as part of the pre-operative evaluation. PMFSH Past Medical History Medical History Vaginal delivery Surgical History Surgical History [place] teeth removed Family History Family History Other Patient denies significant medical history Social History Social History Smoking status: Never smoker Alcohol intake: never Substance use: never Lack of Transportation: No Lack of Food: Never
--- NOTE | 2022-06-16 22:23 | WPDANESEPN ---
Anes - Epidural Procedure Note Date/Time: 06/16/22 22:23 Consent: I have discussed with the patient/family/POA, the placement of an epidural catheter and the use of epidural narcotic/local anesthetic for labor analgesia and/or postoperative pain management, including associated potential risks, benefits, complications and side effects. I have discussed alternative methods of labor analgesia and/or postoperative pain management. The patient/family/POA, understand(s) and wish(es) to proceed with epidural narcotic/local anesthetic for labor analgesia and/or postoperative pain management. Time-Out: A pre-procedural Time-Out was completed immediately before starting the procedure and confirmed: Patient Identification, Site, Procedure, Patient Position and the Availability of Requisite Equipment. Clinical Indications: Pain c contractions Epidural Insertion Note Patient position: sitting Skin prep: chlorhexidine and sterile drape Needle: 18g Tuohy-Schliff Catheter: 20g Unstyleted Technique: Loss of resistance. Level of insertion: L4/5 Catheter skin sharath (cm): 5 Length in epidural space (cm): 10 Skin anesthesia: lidocaine 1% Test dose: 1.5% Lidocaine with 1:[id number] Epi, negative for subarachnoid Inj and negative for intravascular Inj Time of test dose: 22:06 Observations: tolerated well
[2022-06-16 22:28] LABS: Glucose Point of Care 134 mg/dl (65-105)
[2022-06-16 23:15] LABS: Glucose Point of Care 114 mg/dl (65-105)
[2022-06-17] VITALS (69 sets, daily range): BP systolic 87–125; BP diastolic 48–75; PULSE 74–122; RESP 16; TEMP 36.3–37.1; O2SAT 95–100
[2022-06-17] MEDS: ONDANSETRON INJ 4 MG/2 ML VIAL IV PUSH (01:41)
--- NOTE | 2022-06-17 02:23 | WPDHPUPDATE1 ---
History and Physical Update Update Date/Time: 06/17/22 02:23 History and Physical has been reviewed, including an updated exam of the patient. There are NO changes in the patient's condition. Risks, benefits, and alternatives have been discussed and questions answered. Patient agrees to proceed with procedure.
--- NOTE | 2022-06-17 02:23 | WPDOBADMIT ---
Obstetrics - Admit Note Admission Note: record reviewed. No pertinent additions to the history and/or any subsequent changes in the physical findings that are not consistent with the expected course of the were found. Additions to the history and/or subsequent changes in the physical findings follow. None.
[2022-06-17] MEDS: OXYTOCIN 30 UNITS/NS 500 ML 30 UNITS/500 ML BAG 999 UNITS IV CONT (02:52)
--- NOTE | 2022-06-17 02:54 | PM.OBPRVD ---
OB - Delivery Note Procedure Events: Gestational Diabetes Induction method: None Delivery monitor: External FHT and External Uterine Route of delivery: Episiotomy description: None Laceration Description: Perineal - 2nd Degree Delivery repair: chromic Specimen: Yes Quantitative Blood Loss (ml): 500 Anesthesia type: Epidural Disposition: Floor Complications: None Narrative: patient prepped and draped in usual manner for this procedure. Maternal expulsive efforts readily delivered vertex over intact perineum in an occiput posterior position. Nuchal cord was noted and reduced, rest of baby delivered without difficulty and the cord was clamped and cut. Placenta delivered spontaneously with uterus well contracted. Cervix vagina vulva were inspected with second-degree laceration noted. This was repaired using 2-0 chromic in a running interlocking manner to approximate the vaginal tissue and then the deep tissue was approximated as well. Subcuticular layer of 2-0 chromic to approximate the perineal skin. At this point the procedure was considered terminated with immediate postoperative condition of mother baby both excellent. [place] Baby Weeks of gestation at delivery: 39 Infant gender: Male Weight (pounds): 8 Weight (ounces): 7 presentation: vertex position: Right Occiput Posterior Placenta delivery description: Spontaneous Cord Vessel Description: 3 Vessels, Nuchal Cord and Reduced score one minute: 8 score five minutes: 8 AMG Delivery Billing Delivery Delivery: Delivery Charge
[2022-06-17 03:08] LABS: Glucose Point of Care 111 mg/dl (65-105)
[2022-06-17] MEDS: OXYTOCIN 30 UNITS/NS 500 ML 30 UNITS/500 ML BAG 125 UNITS IV CONT (03:20)
[2022-06-17] MEDS: WITCH HAZEL 40 PADS 1 PAD TOPICAL (05:05)
[2022-06-17] MEDS: BENZOCAINE 20% AER SPR (*SP) 56 GM CAN 1 SPRAY TOPICAL (05:05)
--- NOTE | 2022-06-17 06:28 | OBPPTRN ---
06/17/2022 at 0520 Patient transferred to post room #281. Support person present. Oriented to unit, room, information board, rooming in, admission packet and security measures. Patient verbalizes understanding.
[2022-06-17] MEDS: DOCUSATE SODIUM 100 MG CAPSULE PO ×2 (07:57→17:31)
[2022-06-17] MEDS: MULTIVIT/MIN/PREN/FOL AC/IRON TABLET 1 TAB PO (07:57)
[2022-06-17] MEDS: IBUPROFEN 600 MG TABLET PO ×2 (07:57→17:32)
[2022-06-17] MEDS: LANOLIN (LANSINOH) 7.5 GM CREAM 1 APPLIC TOPICAL (07:59)
[2022-06-18 04:22] LABS: Hematocrit 32.3 % (37.0-47.0); Hemoglobin 11.5 g/dL (12.0-15.0)
[2022-06-18 07:45] VITALS: BP 107/58; PULSE 80; RESP 16; TEMP 36.8; O2SAT 98
[2022-06-18] MEDS: DOCUSATE SODIUM 100 MG CAPSULE PO ×2 (09:08→16:52)
[2022-06-18] MEDS: MULTIVIT/MIN/PREN/FOL AC/IRON TABLET 1 TAB PO (09:08)
[2022-06-18] MEDS: IBUPROFEN 600 MG TABLET PO ×2 (09:14→19:53)
[2022-06-18 16:44] LABS: Rapid Plasma Reagin Non-Reactive (NonReactive)
[2022-06-18 18:46] VITALS: BP 121/75; PULSE 79; RESP 18; TEMP 36.8; O2SAT 98
--- NOTE | 2022-06-18 23:23 | PM.OBPNVD ---
OB - PN: Subj Subjective Date/time seen: 06/18/22 0800 Patient comments: pain well controlled, tolerating diet and other (Decreasing lochia.) baby status: doing well and nursing well [place] feeding status: exclusively breast feeding OB - PN: Obj Data Labs 06/18/22 04:16 06/16/22 21:24 Labs: Laboratory Results - last 24 hr 06/16/22 06/18/22 21:24 04:16 Hgb 11.5 L Hct 32.3 L RPR Non-reactive OB - PN A/P Plan day: 1 Plan: routine care Comments: Patient doing well. Continue routine care. Time Spent With Patient Time: Total time spent is greater than 50% in coordination of care (as documented) at patient's floor/unit and/or counseling patient: Review of Systems Review of Systems: All systems reviewed & are unremarkable except as noted in HPI and below Constitutional: Constitutional: Reports no additional constitutional complaints Cardiovascular: Cardiovascular: Denies dyspnea Respiratory: Respiratory: Denies dyspnea Gastrointestinal: Gastrointestinal: Reports no additional gastrointestinal complaints and Denies abdominal pain Genitourinary: Genitourinary: Reports no additional female genitourinary complaints Exam Const: General: no acute distress, alert and awake Resp: Effort & Inspection: normal respiratory effort GI: GI Palp: No Tenderness to palpation present (GI) Other: Fundus nontender, below umbilicus Psych: Appearance: grossly normal Affect: normal affect Other: Abd: fundus firm below umbilicus, nontender Ext: nontender
[2022-06-19 07:35] VITALS: BP 117/51; PULSE 84; RESP 16; TEMP 36.8; O2SAT 98
[2022-06-19] MEDS: DOCUSATE SODIUM 100 MG CAPSULE PO (09:26)
[2022-06-19] MEDS: MULTIVIT/MIN/PREN/FOL AC/IRON TABLET 1 TAB PO (09:26)
--- NOTE | 2022-06-19 10:05 | PM.OBDSVD ---
DS: Admitting Diagnosis Discharge Date 06/19/22 Admitting Diagnosis Labor DS: Discharge Diagnosis Discharge Diagnosis Plan Intrauterine delivered. OB - DS: Summary Hospital Course Hospital Course: Patient admitted in active labor. She had an uncomplicated vaginal delivery. She did well . She was discharged to home on day 2. OB Procedures : Ultrasound OB Procedures Intrapartum: Spontaneous Vag Delivery OB Procedures: : None Peripartum Data Infant Delivery Method: Natural Vaginal Laceration Description: Perineal - 1st Degree complications: none Status at Discharge Functional status at discharge: independent ambulation Time Spent with Patient Time attestation: Total time spent providing and/or coordinating discharge services: Exam Const: General: cooperative Orientation/consciousness: oriented to person, oriented to place and oriented to time HENMT: Face/Nose/Sinus: Normal external nose present Eyes: General: appearance normal, both eyes and all related structures Resp: Effort & Inspection: normal respiratory effort GI: Inspection: normal to inspection Skin: General skin exam: normal color Neuro: General: oriented to person, oriented to place and oriented to time Extrem: General: normal to inspection and no calf tenderness Psych: Appearance: grossly normal Mental Status: mental status grossly normal DS: Data Data Completed and Pending Pending studies at discharge: Pending at discharge 06/17/22 02:51 Surgical [PTH] Routine Labs on day of discharge: Labs from last 24 hours 06/16/22 21:24 RPR Non-reactive Discharge Plan Discharge Attending physician on discharge: Socrates Myers Consulting providers: Mike Arnett ; Lorenzo Reyes Discharging Clinician: Socrates Myers Anticipated Discharge Date/Time: 06/19/22 10:02 Patient Disposition: Home, Self-Care Activity: may shower and pelvic rest Diet: regular Discharge Instructions: Education: Mom and Baby Guide Given to: Mother Follow-Up: Call your delivering provider's office for an appointment to be seen in: 4 Weeks Mom and baby should come to the [facility] for the follow-up appointment. Appointment Date/Time: June 20, 2022 at 10:00 am What to expect at your follow-up visit: Physical Assessment Call [phone] if you are unable to keep your appointment time. BREAST CARE: * Wear a snug supportive bra. * For engorgement discomfort: Breast Feeding: * Apply warm moist washcloths * Express milk as needed to relieve engorgement * Wear loose clothing * For sore nipples: * Identify correct latch-on * Apply warm moist washcloths before and after nursing * Air dry nipples after nursing * May apply Lansinoh cream to nipples PERINEAL CARE: * Until bleeding stops, use your evi bottle after urinating * Change your pad frequently throughout the day * You may take sitz baths several times a day (fill your bathtub with warm water and soak for 20 minutes.) Do NOT bathe in the water * No tub baths until seen by your physician - You may shower ACTIVITY: * Rest as much as possible. * Do not exercise or lift anything heavier than your baby (such as laundry or other children.) * Avoid stairs or driving as much as possible. * Do not put anything into the vagina. No douching, tampons, or sexual activity until seen by physician. NOTIFY PHYSICIAN IF YOU HAVE ANY QUESTIONS OR IF ANY OF THE FOLLOWING SYMPTOMS OCCUR: * If your perineum becomes red, swollen, or more painful than what you have experienced in the hospital. * If your vaginal bleeding becomes foul smelling. * If your vaginal bleeding becomes more heavy than a period or if your bleeding changes from pink to bright red. However, you may pass an occasional walnut-sized clot once or twice for the first week postpa
[2022-06-20 09:55] VITALS: BP 115/72; PULSE 87; RESP 18; TEMP 37; O2SAT 100
== END 2022-06-19 11:55 | disposition home or self-care (01) | DRG 560 ==
LOC: ANHLDR 21:15 → ANHOB2 06-17 05:33
PROVIDERS: Obstetrics & Gynecology; Admitting Provider Obstetrics & Gynecology; PCP Family Medicine; Visit Provider Obstetrics & Gynecology
DX: O24.429 Gestational diabetes mellitus in childbirth, unspecified control (principal); O36.8330 Maternal care for abnormalities of the fetal heart rate or rhythm, third trimester, not applicable or unspecified; O69.81X0 Labor and delivery complicated by cord around neck, without compression, not applicable or unspecified; Z37.0 Single live birth; O70.1 Second degree perineal laceration during delivery; O77.0 Labor and delivery complicated by meconium in amniotic fluid; Z3A.39 39 weeks gestation of pregnancy
CPT/HCPCS: 36415; 80053; 82948; 85014; 85018; 85025; 86592; 86850; 86900; 86901; 88307; A9270; J2405; J2590; J7120

== ENCOUNTER 2024-05-08 15:54 | Emergency (ER) | payer OTHER, SELFPAY ==
--- NOTE | ~2024-05-08 | XR_ITS ---
XR chest 2V Ordering provider: Roni Mohan MD History: 39 years Female with . CP . Comparison: None. FINDINGS: MEDIASTINUM: The cardiac silhouette is not enlarged. LUNGS: No infiltrates, effusions or pneumothorax. OTHER: No free air under the diaphragm. IMPRESSION: No acute cardiopulmonary pathology. Reviewed, dictated and finalized at location A. BUSTER
--- NOTE | 2024-05-08 15:56 | ECG_ITS ---
Test Date: 2024-05-08 16:04:57 Measurements Intervals [place] Rate: 77 P: 20 MN: 154 QRS: 65 QRSD: 85 T: 32 QT: 371 QTc: 421 Interpretive Statements SINUS RHYTHM WITH OCCASIONAL SUPRAVENTRICULAR PREMATURE COMPLEXES POSSIBLE RIGHT VENTRICULAR CONDUCTION DELAY [RSR (QR) IN V1/V2] significant baseline artifact affects interpretation No previous ECG available for comparison Electronically Signed On 05-11-2024 15:11:56 TYPING POOL SUPERVISOR by Carroll Adan M.D.
[2024-05-08 16:00] VITALS: BP 121/67; PULSE 73; RESP 18; TEMP 36.6; O2SAT 100
--- NOTE | 2024-05-08 16:07 | ED.CHESTPAIN ---
HPI - Chest Pain General Chief Complaint: Chest Pain Stated Complaint: chest pain Focused HPI: 39-year-old female presents emergency department for left-sided chest pain that radiates to her back since last night. Patient states she was resting when the chest pain started. She describes it as a dull ache. States it is better when sitting up, worse with palpation. Denies associated shortness of breath, lower extremity edema, hemoptysis, cough or congestion, history of VTE, recent surgery hospitalizations. States her uncle recently of heart disease and she contacted her mom advised to come to the ED. She denies immediate family history of heart disease. Denies smoking. GENERAL: Well-appearing, well-nourished, and in no acute distress. HEAD: Normocephalic, atraumatic. CHEST: Clear to auscultation. ?No respiratory distress. Tenderness to the left chest wall on palpation HEART: Regular rate and rhythm.? NEURO: ?Alert and oriented x3. Patient screened in triage and initial orders placed.? ?Additional care and disposition to be based upon?diagnostic testing and treatment. Related Data Home Medications ?Medication ?Instructions ?Recorded ?Confirmed ?Last Taken ?Type ferrous sulfate 325 mg (65 mg 325 mg PO DAILY 08/29/22 10/16/23 Unknown History iron) tablet (Feosol) Allergies Allergy/AdvReac Type Severity Reaction Status Date / Time No Known Allergies Allergy Verified 05/08/24 15:55 PMFSH Past Medical History Medical History Vaginal delivery Surgical History Surgical History [place] teeth removed Family History Family History Other Patient denies significant medical history Social History Social History Smoking status: Never smoker Alcohol intake: never Substance use: never Lack of Transportation: No Lack of Food: Never True Current Housing: I Have Housing Concerned About Future Housing: No Difficulty Paying Gas/Electric Bills: No Difficulty Paying for Meds: No Currently Unemployed: No Education: Bachelor's Degree Difficulty w/ Childcare or Family Care: No Living arrangements: with family Occupation/Education: occupation Gender identity (if verbalized by the patient): Female Sexual Orientation (if Verbalized by the Patient): Straight or Heterosexual Spiritual care concerns: No Course Vital Signs Vital signs: Vital Signs Temperature 98 F 05/08/24 16:00 Pulse Rate 73 05/08/24 16:00 Respiratory Rate 18 05/08/24 16:00 Blood Pressure 121/67 05/08/24 16:00 Pulse Oximetry 100 05/08/24 16:00 Oxygen Delivery Room Air 05/08/24 16:00 Temperature 98 F 05/08/24 16:00 Pulse Rate 73 05/08/24 16:00 Respiratory Rate 18 05/08/24 16:00 Blood Pressure 121/67 05/08/24 16:00 Pulse Oximetry 100 05/08/24 16:00 Oxygen Delivery Room Air 05/08/24 16:00 MDM - Chest Pain Lab Data 05/08/24 16:08 05/08/24 16:08 Labs: Lab Results 05/08/24 Range/Units 16:08 WBC 11.7 H (4.5-10.0) K/mm3 RBC 4.29 (4.2-5.4) M/mm3 Hgb 11.7 L (12.0-15.0) g/dL Hct 33.9 L (37.0-47.0) % MCV 79.0 L (80-100) fl MCH 27.3 (26-34) pg MCHC 34.5 (32-36) g/dl RDW 15.5 H (11.5-14.5) % Plt Count 405 H (150-375) k/mm3 MPV 9.2 (7.4-10.4) fl Immature Gran % (Auto) 0.5 (0-0.5) % Neut % (Auto) 62.0 (45.5-73.1) % Lymph % (Auto) 29.7 (18.3-44.2) % Lake % (Auto) 6.0 (2.6-8.5) % Eos % (Auto) 1.4 (0-4.4) % Baso % (Auto) 0.4 (0.2-1.2) % Lymph # (Auto) 3.47 H (0.9-3.2) K/mm3 Lake # (Auto) 0.7 H (0.1-0.6) K/mm3 Eos # (Auto) 0.2 (0-0.3) K/mm3 Baso # (Auto) 0.1 (0.0-0.1) K/mm3 Abs Immat Gran (auto) 0.06 H (0.00-0.031) K/mm3 Absolute Neuts (auto) 7.2 H (1.3-6.7) K/mm3 Absolute Nucleated RBC 0.000 (0.0-0.012) K/mm3 Nucleated RBC % 0.0 (0.0-0.2) % PT 13.3 (11.1-14.7) Seconds INR 1.0 APTT 26.1 (22.3-36.8) Seconds Sodium 137 (137-145) mmol/L Potassium 4.6 (3.4-5.0) mmol/L Chloride 110 H (98-107) mmol/L Carbon Dioxide 25 (22-30) mmol/L Anion Gap 2 L (4-12) mmol/L BUN 12 (7-17) mg/dL Creatinine 0.80 (0.7-1.0) mg/dL Estim Creat Clear Calc 76 ml/min Estimated GFR > 60 (59 - ) Glucose 92 (65-110) mg/dL Calcium 9.2 (8.4-10.2) mg/dL Total Bilirubin 0.3 (0.2-1.3) mg/dL AST 17 (14-36) U/L ALT 14 (6-35) U/L Alkaline Phosphatase 88 (38-126) U/L Troponin I < 0.012 (0.000-0.034) ng/mL NT-Pro-B Natriuret Pep < 20 (19.9-100) pg/mL Total Protein 8.0 (6.3-8.2) g/dL Albumin 4.2 (3.5-5.1) g/dL Lipase 82 (23-300) U/L Discharge Plan Discharge Clinical Impression: Chest pain Qualifiers: Chest pain type: unspecified Qualified Code(s): R07.9 - Chest pain, unspecified Patient Disposition: Elopement After Seen by Prov Condition: Stable Patient Language: Upper Sorbian Prescriptions: No Action ferrous sulfate [Feosol] 325 mg (65 mg iron) tablet 325 mg PO DAILY Follow-up/Referrals: Mer,Sebastian Keller MD [Primary Care Provider] -
[2024-05-08 16:15] LABS: Basophils Absolute Auto 0.1 K/mm3 (0.0-0.1); Basophils Percent Auto 0.4 % (0.2-1.2); Eosinophils Absolute Auto 0.2 K/mm3 (0-0.3); Eosinophils Percent Auto 1.4 % (0-4.4); Hematocrit 33.9 % (37.0-47.0); Hemoglobin 11.7 g/dL (12.0-15.0); Immature Granulocyte Absolute 0.06 K/mm3 (0.00-0.031); Immature Granulocyte Percent A 0.5 % (0-0.5); Lymphocytes Absolute Auto 3.47 K/mm3 (0.9-3.2); Lymphocytes Percent Auto 29.7 % (18.3-44.2); Mean Corpuscular HGB Conc 34.5 g/dl (32-36); Mean Corpuscular Hemoglobin 27.3 pg (26-34); Mean Platelet Volume 9.2 fl (7.4-10.4); Monocytes Absolute Auto 0.7 K/mm3 (0.1-0.6); Neutrophils Absolute Auto 7.2 K/mm3 (1.3-6.7); Platelet Count Result 405 k/mm3 (150-375); Red Blood Count 4.29 M/mm3 (4.2-5.4); Red Cell Distribution Width 15.5 % (11.5-14.5); White Blood Count 11.7 K/mm3 (4.5-10.0)
[2024-05-08 16:27] LABS: Alanine Aminotransferase 14 U/L (6-35); Albumin Level 4.2 g/dL (3.5-5.1); Alkaline Phosphatase 88 U/L (38-126); Anion Gap 2 mmol/L (4-12); Aspartate Amino Transferase 17 U/L (14-36); Bilirubin,Total 0.3 mg/dL (0.2-1.3); Blood Urea Nitrogen 12 mg/dL (7-17); Calcium 9.2 mg/dL (8.4-10.2); Carbon Dioxide 25 mmol/L (22-30); Chloride 110 mmol/L (98-107); Estimated CRCL calculation 76 ml/min; Estimated Glomerular Filt Rate > 60; Glucose 92 mg/dL (65-110); Lipase 82 U/L (23-300); Potassium 4.6 mmol/L (3.4-5.0); Sodium 137 mmol/L (137-145)
[2024-05-08 16:36] LABS: Prothrombin Time 13.3 Seconds (11.1-14.7)
[2024-05-08 16:37] LABS: Partial Thromboplastin Time 26.1 Seconds (22.3-36.8)
[2024-05-08 16:39] LABS: NT Pro B Type Natriuretic Pept < 20 pg/mL (19.9-100); Troponin I < 0.012 ng/mL (0.000-0.034)
--- NOTE | 2024-05-08 18:31 | PC.NURSE ---
Pt came up to intake stating she is feeling better and going to f/u w PCP. Exits ED in NAD.
== END 2024-05-08 18:31 | disposition left against medical advice (07) ==
LOC: ANHED 23:04
PROVIDERS: Student in an Organized Health Care Education/Training Program; Emergency Provider Physician Assistant; PCP Family Medicine
DX: R07.9 Chest pain, unspecified (principal); I49.1 Atrial premature depolarization; R94.31 Abnormal electrocardiogram [ECG] [EKG]
CPT/HCPCS: 36415; 71046; 80053; 83690; 83880; 84484; 85025; 85610; 85730; 93005; 99284

== ENCOUNTER 2024-09-29 11:32 | Outpatient (CLI) | payer OTHER, SELFPAY ==
--- OUTSIDE RECORDS SUMMARY | 2024-09-29 11:38 | XMS_ITS | Clinical Summary ---
Author Organization [facility] Address [address] [place] [id number] Phone Care Team Providers Care Flight Technician Name Role Phone Provider, None Primary Care Provider Unavailabl e Allergies No known active allergies Medications No known medications Social History Tobacco Use Types Packs/Day Years Used Date Smoking Tobacco: Never Smokeless Tobacco: Never Alcohol Use Standard Drinks/Week Comments No 0 (1 standard drink = 0.6 oz pur e alcohol) Sexually Active Control Partners Comments Not Currently Comments No Sex and Gender Information Value Date Recorded Sex Assigned at Not on file Legal Sex Female 9:34 PM CDT Gender Identity Not on file Sexual Orientation Not on file Last Filed Vital Signs Vital Sign Reading Time Taken Comments Blood Pressure 120/74 09/10/2018 4:34 PM CDT Pulse 78 09/10/2018 4:34 PM CDT Temperature 37.2 C (98.9 F) 09/10/2018 4:34 PM CDT Respiratory Rate 14 09/10/2018 4:34 PM CDT Oxygen Saturation 99% 09/10/2018 4:34 PM CDT Inhaled Oxygen Concentration - - Weight 68.5 kg (151 lb) 09/10/2018 4:34 PM CDT Height - - Body Mass Index - - Plan of Treatment Health Maintenance Due Date Last Done Comments Hepatitis C Virus (HCV) Screening 1986 TdaP Immunization 1986 Influenza Immunization (#1) 2024 SARS-COV-2 Immunization ( season) 2024 Respiratory Syncytial Virus (RSV) Immunization (Adult) (1 - 1-dose 75+ series) 2061 Hepatitis B Immunization Completed 999, 02/08/1998, 02/04/1997 DTaP/Tdap/Td Immunization Discontinued 2001, 04/06/1991, 03/17/1990, Additional history exists Meningococcal Immunization (ACWY) Aged Out No longer eligible based on patient's age to complete this topic Pneumococcal Immunization Combined Aged Out No longer eligible based on patient's age to complete this topic Rotavirus Immunization Aged Out No lo nger eligible based on patient's age to complete this topic Insurance MEDICAID [employer] Care Teams Flight Technician Relationship Specialty Start Date End Date Provider, None [place] PCP - General 06/14/18
--- OUTSIDE RECORDS SUMMARY | 2024-09-29 11:38 | XMS_ITS | Encounter Summary ---
Author Organization [facility] Address [address] [place] [address] Phone Care Team Providers Care High Lighter Name Role Phone Sebastian Del Angel MD Primary Care Provider [phone] Giselle Sevilla NP Primary Care Provider [phone] Sebastian Del Angel MD Primary Care Provider [phone] Mitali Bajwa NP Primary Care Provider [phone] Elizabeth Josue MD Unavailable [phone] Encounter Details Date Type Department Care Team (Late st Contact Info) Description 08/06/[address] [facility] ProviderJose MD [address] [place] [id number] Social History Tobacco Use Types Packs/Day Years Used Date Smoking Tobacco: Never Smokeless Tobacco: Never Alcohol Use Standard Drinks/Week Comments No 0 (1 standard drink = 0.6 oz pur e alcohol) Comments Unknown Sex and Gender Information Value Date Recorded Sex Assigned at Not on file Legal Sex Female 5:49 PM MANAGER CREDIT COLLECTIONS Gender Identity Not on file Sexual Orientation Not on file documented as of this encounter Plan of Treatment Not on file documented as of this encounter Procedures Procedure Name Priority Date/Time Associated Diagnosis Comments DISCHARGE LABORATORY CUMULATIVE REPORT 08/06/2017 12:00 AM CDT documented in this encounter Results * DISCHARGE LABORATORY CUMULATIVE REPORT (08/06/2017 12:00 AM CDT) Narrative 08/06/2017 12:00 AM CDT Ordered by an unspecified provider. us Historical Provider LAB BLOOD ORDERABLES Paty l Result documented in this encounter Visit Diagnoses Not on filedocumented in this encounter Additional Health Concerns Infection Onset Date Last Indicated Resolved Time COVID: Suspected 06/30/2024 06/30/2024 06/30/2024 5:58 PM MANAGER CREDIT COLLECTIONS documented as of this encounter Care Teams High Lighter Relationship Specialty Start Date End Date Sebastian Del Angel MD PCP - General 02/05/17 09/26/17 Giselle Sevilla NP [address] [place] [address] PCP - General Family Medicine 09/27/17 03/28/20 Sebastian Del Angel MD PCP - General Family Medicine 03/29/20 07/27/21 Mitali Bajwa NP [address] [place] [address] [address] [place] [address] PCP - General Family Medicine 07/28/21 Elizabeth Josue MD [address] [facility] [address] [place] [address] Referring Physician Obstetrics and Gynecology 07/28/21 documented as of this encounter
--- OUTSIDE RECORDS SUMMARY | 2024-09-29 11:38 | XMS_ITS | Encounter Summary ---
Author Organization [facility] Address [address] [place] [address] Phone Care Team Providers Care Ceramic Engineering Professor Name Role Phone [email or web address] NURSING INFORMATICS CLINICAL ANALYST Primary Care Provider [phone] Sebastian Del Angel MD Primary Care Provider [phone] Mitali Bajwa NP Primary Care Provider [phone] Elizabeth Josue MD Unavailable [phone] Encounter Details Date Type Department Care Team (Late st Contact Info) Description 09/29/[address] [facility] ProviderJose MD [address] [place] [address] Social History Tobacco Use Types Packs/Day Years Used Date Smoking Tobacco: Never Smokeless Tobacco: Never Alcohol Use Standard Drinks/Week Comments No 0 (1 standard drink = 0.6 oz pur e alcohol) Comments Unknown Sex and Gender Information Value Date Recorded Sex Assigned at Not on file Legal Sex Female 5:49 PM PROGRAM DEVELOPER Gender Identity Not on file Sexual Orientation Not on file documented as of this encounter Plan of Treatment Not on file documented as of this encounter Procedures Procedure Name Priority Date/Time Associated Diagnosis Comments DISCHARGE LABORATORY CUMULATIVE REPORT 09/29/2017 12:00 AM CDT documented in this encounter Results * DISCHARGE LABORATORY CUMULATIVE REPORT (09/29/2017 12:00 AM CDT) Narrative 09/29/2017 12:00 AM CDT Ordered by an unspecified provider. Historical Provider LAB BLOOD ORDERABLES Paty l Result documented in this encounter Visit Diagnoses Not on filedocumented in this encounter Additional Health Concerns Infection Onset Date Last Indicated Resolved Time COVID: Suspected 06/30/2024 06/30/2024 06/30/2024 5:58 PM PROGRAM DEVELOPER documented as of this encounter Care Teams Ceramic Engineering Professor Relationship Specialty Start Date End Date Giselle Sevilla NP [address] [facility] [address] [place] [address] PCP - General Family Medicine 09/27/17 03/28/20 Sebastian Del Angel MD [address] [facility] [address] [place] [address] PCP - General Family Medicine 03/29/20 07/27/21 Mitali Bajwa NP [address] [facility] [address] [place] [address] PCP - General Family Medicine 07/28/21 Elizabeth Josue MD [address] [facility] [address] [place] [address] Referring Physician Obstetrics and Gynecology 07/28/21 documented as of this encounter
--- OUTSIDE RECORDS SUMMARY | 2024-09-29 11:38 | XMS_ITS | Clinical Summary ---
Author Organization [facility] Address [address] [place] [address] Care Team Providers Care Asbestos Shingle Inspector Name Role Phone Sebastian Del Angel MD Primary Care Provider Source Comments [facility],non-owned Affiliates and Associated Physician Practices is amultiple site organization consisting of ambulatory clinics and hospital sitesin [place], [place], [place] and [place]. This disclosure is being madepursuant to the Care Everywhere program and may not contain all information available regarding this patient. 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 Gender Identity Not on file Sexual Orientation Not on file Plan of Treatment Health Maintenance Due Date Last Done Comments HIV SCREENING 2001 HEPATITIS C SCREENING 02/09/2004 DTAP/TDAP/TD VACCINES (1 - Tdap) 2005 HEPATITIS B VACCINE (1 of 3 - 19+ 3-dose series) 2005 COVID-19 VACCINE ( - 2023-2 5 season) 2024 DEPRESSION SCREENING 05/06/2024 INFLUENZA VACCINE (Season Ended) 2025 ZOSTER VACCINE (1 of 2) 02/14/2036 HIB VACCINE Aged Out No longer eligi ble based on patient's age to complete this topic HPV VACCINE Aged Out No longer eligi ble based on patient's age to complete this topic MENINGOCOCCAL (Group B) VACC INE SHARED DECISION-MAKING Aged Out No longer eligibl e based on patient's age to complete this topic MENINGOCOCCAL GROUPS A/C/Y/W VACCINE Aged Out No longer eligible b ased on patient's age to complete this topic PNEUMOCOCCAL VACCINE Aged Out No long er eligible based on patient's age to complete this topic Insurance [facility] Care Teams Asbestos Shingle Inspector Relationship Specialty Start Date End Date Sebastian Del Angel MD [address] [address] [place] [address] PCP - General 07/06/22
--- OUTSIDE RECORDS SUMMARY | 2024-09-29 11:39 | XMS_ITS | Clinical Summary ---
Author Organization [facility] Address [address] [place] [address] Phone Care Team Providers Care Core Piler Name Role Phone Unavailable Primary Care Provider Unavailabl e Medications vit-iron fumarate-fa (REY ) 28 mg iron- 800 mcg Tablet Take 1 Tablet by mouth daily. Active IRON, CARBONYL ORAL Take by mouth. Active Active Problems Problem Noted Date Diagnosed Date GDM (gestational diabetes mellitus) 04/19/2022 Estimated Date of Delivery Comme nts Yes 06/21/2022 Social History Tobacco Use Types Packs/Day Years Used Date Smoking Tobacco: Never Tobacco Cessation:Counseling Given: Not Answered Estimated Date of Delivery Comme nts Yes 06/21/2022 Sex and Gender Information Value Date Recorded Sex Assigned at Not on file Legal Sex Female 8:10 AM CDT Gender Identity Not on file Sexual Orientation Not on file Last Filed Vital Signs Vital Sign Reading Time Taken Comments Blood Pressure - - Pulse - - Temperature - - Respiratory Rate - - Oxygen Saturation - - Inhaled Oxygen Concentration - - Weight 78.9 kg (174 lb) 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 Height 160 cm (5' 3) 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 Body Mass Index 30.82 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
--- OUTSIDE RECORDS SUMMARY | 2024-09-29 11:39 | XMS_ITS | Referral Summary ---
Author Organization [facility] Address [address] [place] [id number] Care Team Providers Care Telegraph Repeater Technician Name Role Phone Mitali Bajwa NP Primary Care Provider [phone] Elizabeth Josue MD Unavailable [phone] Encounters Date Type Department Care Team Description 09/04/2024 4:45 PM CDT Office Visit [facility] Medical [facility] at [address] [address] Harika Rocha NP Acute bacterial conjunctivitis of left eye (Primary Dx) 07/24/2024 Results Follow-Up [facility] at [address] [address] Brunilda Raymundo PA XR Ankle Left 3+ Vw, XR Foot Left 3+ Vw 07/24/2024 5:15 PM CDT - 07/24/2024 11:59 PM CDT Hospital Encounter [facility] [address] [place] [address] Acute foot pain, left; Acute left ankle pain Discharge Disposition: Discharge to home or self care 07/24/2024 4:45 PM CDT Office Visit [facility] Medical [facility] at [address] [address] Brunilda Raymundo PA Acute foot pain, left (Primary Dx); Acute left ankle pain from Last 3 Months Allergies No known active allergies Medications multivitamin with minerals tablet Take 1 tablet by mouth daily Active ofloxacin (OCUFLOX) 0.3 % ophthalmic solutionIndication s:Acute bacterial conjunctivitis of left eye Administer 1 drop into the left eye 4 (four) times a day 10 mL 5 Active Active Problems Problem Noted Date Diagnosed Date GDM (gestational diabetes mellitus) 04/19/2022 Vitamin D deficiency 06/11/2017 Anxiety 06/07/2017 Vaginal discharge 09/24/2016 Nose and sinus finding 05/16/2015 Overview (08/10/2016): Sinus symptom Immunizations Immunization Administration Dates Next Due DTP 04/06/1991,03/17/1990,1986 ,1986 Hep B, Adolescent or Pediatric 08/22/1998,1997,02/04/1997 HiB 07/20/1991 Influenza, Unspecified 05/06/2023(Deferr ed: Patient Refused),05/06/2022(Deferred: Patient Refused),07/28/2021(Deferred: Patient Refused) MMR 04/06/1991,01/15/1989 OPV 04/06/1991,03/17/1990,1986 ,1986 Td, adsorbed 02/03/2002 Tdap 06/01/2022 Social History Tobacco Use Types Packs/Day Years Used Date Smoking Tobacco: Never Smokeless Tobacco: Never Alcohol Use Standard Drinks/Week Comments No 0 (1 standard drink = 0.6 oz pur e alcohol) PHQ-2 Answer Date Recorded PHQ-2 Total Score (If total score is 3 or more points, staff should administer the PHQ-9) 0 08/06/2023 Comments No Sex and Gender Information Value Date Recorded Sex Assigned at Not on file 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 Gender Identity Not on file Sexual Orientation Not on file Last Filed Vital Signs Vital Sign Reading Time Taken Comments Blood Pressure 102/60 09/04/2024 4:22 PM CDT Pulse 85 09/04/2024 4:22 PM CDT Temperature 36.4 C (97.6 F) 09/04/2024 4:22 PM CDT Respiratory Rate 20 09/04/2024 4:22 PM CDT Oxygen Saturation 98% 09/04/2024 4:22 PM CDT Inhaled Oxygen Concentration - - Weight 70.3 kg (155 lb) 09/04/2024 4:22 PM CDT Height 157.5 cm (5' 2) 09/04/2024 4:22 PM CDT Body Mass Index 28.35 09/04/2024 4:22 PM CDT Plan of Treatment Not on file Procedures Procedure Name Priority Date/Time Associated Diagnosis Comments XR ANKLE LEFT 3 OR MORE VIEWS Schedule ALO, Read ALO (Appt Today, Awaiting Results) 07/24/2024 5:38 PM CDT Acute left ankle pain XR FOOT LEFT 3 OR MORE VIEWS Schedule ALO, Read ALO (Appt Today, Awaiting Results) 07/24/2024 5:38 PM CDT Acute foot pain, left PAP SMEAR Routine 07/31/2022 from Last 3 Months or Most Recently Relevant to Health Maintenance Results * XR Foot Left 3+ Vw (07/24/2024 5:38 PM CDT) Anatomical Region Laterality Modality Lower Extremities, Foot Left Computed Radiography 07/24/2024 7:12 PM CDT Narrative 07/24/2024 7:13 PM CDT EXAM DESCRIPTION: XR FOOT LEFT 3 OR MORE VIEWS; XR ANKLE LEFT 3 OR MORE VIEWS REASON FOR STUDY: pain throughout 3rd-5th metatarsals after tripping over a cot this morning Pt fell this morning. Pain to lateral aspect of foot and ankle Unable to bear weight No prior fx or surgeries FINDINGS: Three views left ankle and three views left foot submitted without comparison. The ankle joint space and mortise appear normal. No evidence of an ankle effusion. No acute fracture. The midfoot and forefoot joint spaces appear normal. IMPRESSION: No acute fracture. If persistent clinical concern for an occult fracture, conservative management with repeat radiographs in 2-3 weeks or further evaluation with MRI may be considered. THIS IS AN ELECTRONICALLY VERIFIED FINAL REPORT 07/24/2024 7:13 PM - Electronically signed by Vipul Church M.D. MF: JEANIE Report ID: [id number] Reading Location: [id number] Procedure Note Vipul Church MD - 07/24/2024 EXAM DESCRIPTION: XR FOOT LEFT 3 OR MORE VIEWS; XR ANKLE LEFT 3 OR MORE VIEWS REASON FOR STUDY: pain throughout 3rd-5th metatarsals after tripping overa cot this morning Pt fell this morning. Pain to lateral aspect of foot and ankle Unableto bear weight No prior fx or surgeries FINDINGS: Three views left ankle and three views left foot submitted withoutcomparison. The ankle joint space and mortise appear normal. No evidence of an ankle effusion. No acute fracture. The midfoot and forefoot joint spacesappear normal. IMPRESSION: No acute fracture. If persistent clinical concern for an occult fracture, conservative management with repeat radiographs in 2-3 weeks or further evaluation with MRI may be considered. THIS IS AN ELECTRONICALLY VERIFIED FINAL REPORT 07/24/2024 7:13 PM - Electronically signed by Vipul Church M.D. MF: JEANIE Report ID: [id number] Reading Location: [id number] Brunilda EASTMAN IMG XR PROCEDURES F inal Result * XR Ankle Left 3+ Vw (07/24/2024 5:38 PM CDT) Anatomical Region Laterality Modality Lower Extremities, Ankle Left Compute d Radiography 07/24/2024 7:12 PM CDT Narrative 07/24/2024 7:13 PM CDT EXAM DESCRIPTION: XR FOOT LEFT 3 OR MORE VIEWS; XR ANKLE LEFT 3 OR MORE VIEWS REASON FOR STUDY: pain throughout 3rd-5th metatarsals after tripping over a cot this morning Pt fell this morning. Pain to lateral aspect of foot and ankle Unable to bear weight No prior fx or surgeries FINDINGS: Three views left ankle and three views left foot submitted without comparison. The ankle joint space and mortise appear normal. No evidence of an ankle effusion. No acute fracture. The midfoot and forefoot joint spaces appear normal. IMPRESSION: No acute fracture. If persistent clinical concern for an occult fracture, conservative management with repeat radiographs in 2-3 weeks or further evaluation with MRI may be considered. THIS IS AN ELECTRONICALLY VERIFIED FINAL REPORT 07/24/2024 7:13 PM - Electronically signed by Vipul Church M.D. MF: JEANIE Report ID: [id number] Reading Location: [id number] Procedure Note Vipul Church MD - 07/24/2024 EXAM DESCRIPTION: XR FOOT LEFT 3 OR MORE VIEWS; XR ANKLE LEFT 3 OR MORE VIEWS REASON FOR STUDY: pain throughout 3rd-5th metatarsals after tripping overa cot this morning Pt fell this morning. Pain to lateral aspect of foot and ankle Unableto bear weight No prior fx or surgeries FINDINGS: Three views left ankle and three views left foot submitted withoutcomparison. The ankle joint space and mortise appear normal. No evidence of an ankle effusion. No acute fracture. The midfoot and forefoot joint spacesappear normal. IMPRESSION: No acute fracture. If persistent clinical concern for an occult fracture, conservative management with repeat radiographs in 2-3 weeks or further evaluation with MRI may be considered. THIS IS AN ELECTRONICALLY VERIFIED FINAL REPORT 07/24/2024 7:13 PM - Electronically signed by Vipul Church M.D. MF: JEANIE Report ID: [id number] Reading Location: [id number] Brunilda EASTMAN IMG XR PROCEDURES F inal Result * HM PAP SMEAR (07/31/2022) SCRIBED Pap test negative us Socrates Myers MD HEALTH MAINTENANCE Final Re sult from Last 3 Months or Most Recently Relevant to Health Maintenance Insurance [facility] Care Teams Telegraph Repeater Technician Relationship Specialty Start Date End Date Mitali Bajwa NP PCP - General Family Medicine 07/28/21 Elizabeth Josue MD [address] [place] [address] Referring Physician Obstetrics and Gynecology 07/28/21
--- OUTSIDE RECORDS SUMMARY | 2024-09-29 11:39 | XMS_ITS | Clinical Summary ---
Author Organization [facility] Address [address] [place] [address] Care Team Providers Care Exhibitions Curator Name Role Phone Mitali Bajwa NP Primary Care Provider [phone] Elizabeth Josue MD Unavailable [phone] Allergies No known active allergies Medications multivitamin with minerals tablet Take 1 tablet by mouth daily Active ofloxacin (OCUFLOX) 0.3 % ophthalmic solutionIndication s:Acute bacterial conjunctivitis of left eye Administer 1 drop into the left eye 4 (four) times a day 10 mL Active Active Problems Problem Noted Date Diagnosed Date GDM (gestational diabetes mellitus) 04/19/2022 Vitamin D deficiency 06/11/2017 Anxiety 06/07/2017 Vaginal discharge 09/24/2016 Nose and sinus finding 05/16/2015 Overview (08/10/2016): Sinus symptom Encounters Date Type Department Care Team Description 09/04/2024 4:45 PM CDT Office Visit [facility] Medical [facility]ient Care at [address] [place] [phone] Harika Rocha NP Acute bacterial conjunctivitis of left eye (Primary Dx) 07/24/2024 5:15 PM CDT - 07/24/2024 11:59 PM CDT Hospital Encounter [facility] [address] [place] [address] Acute foot pain, left; Acute left ankle pain Discharge Disposition: Discharge to home or self care 07/24/2024 4:45 PM CDT Office Visit [facility] at [address] [place] [address] Brunilda Raymundo PA Acute foot pain, left (Primary Dx); Acute left ankle pain 07/24/2024 Results Follow-Up [facility] at [address] [place] [phone] Brunilda Raymundo PA XR Ankle Left 3+ Vw, XR Foot Left 3+ Vw from Last 3 Months Immunizations Immunization Administration Dates Next Due DTP 04/06/1991,03/17/1990,1986 ,1986 Hep B, Adolescent or Pediatric 08/22/1998,1997,02/04/1997 HiB 07/20/1991 Influenza, Unspecified 05/06/2023(Deferr ed: Patient Refused),05/06/2022(Deferred: Patient Refused),07/28/2021(Deferred: Patient Refused) MMR 04/06/1991,01/15/1989 OPV 04/06/1991,03/17/1990,1986 ,1986 Td, adsorbed 02/03/2002 Tdap 06/01/2022 Medical History Medical History Date Comments Vitamin D deficiency Family History Medical History Relation Name Comments Heart failure Father Relation Name Status Comments Father Social History Tobacco Use Types Packs/Day Years [...] on file 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 Gender Identity Not on file Sexual Orientation Not on file Obstetrics History Last Filed Vital Signs Vital Sign Reading [...] 09/04/2024 4:22 PM CDT Plan of Treatment Health Maintenance Due Date Last Done Comments Hepatitis C Screening 1986 Cervical Cancer Screening 08/09/2023 08/08/2022, Depression Screening 08/05/2024 08/06/2023, 07/28/2021, 03/14/2018, Additional history exists Regular Well Visit/Exam 18-64 08/05/2024 08/06/2023, 07/28/2021, 10/11/2017 DTaP/Tdap/Td Vaccine (6 - Td or Tdap) 06/01/2032 06/01/2022, 02/03/2002, 04/06/1991, Additional history exists Hepatitis B Screening Completed 08/22/1998 , 02/08/1998, 02/04/1997 HPV Vaccines Aged Out No longer eligi ble based on patient's age to complete this topic Influenza Vaccine Discontinued Pneumococcal vaccine <65 Aged Out No longer eligible based on patient's age to complete this topic Varicella Vaccines Discontinued Procedures Procedure Name Priority Date/Time Associated Diagnosis Comments XR ANKLE LEFT 3 OR MORE VIEWS Schedule ALO, Read ALO (Appt Today, Awaiting Results) 07/24/2024 5:38 PM CDT Acute left ankle pain XR FOOT LEFT 3 OR MORE VIEWS Schedule ALO, Read ALO (Appt Today, Awaiting Results) 07/24/2024 5:38 PM CDT Acute foot pain, left HM PAP SMEAR Routine 07/31/2022 from Last 3 [...] Vipul Church M.D. MF: JEANIE Report ID: [id number] Reading Location: [id number] Procedure Note Vipul Church MD - 07/24/2024 [...] Vipul Church M.D. MF: JEANIE Report ID: [id number] Reading Location: [id number] Brunilda Jaelyn EASTMAN IMG XR PROCEDURES F inal Result [...] Vipul Church M.D. MF: JEANIE Report ID: [id number] Reading Location: [id number] Procedure Note Vipul Church MD - 07/24/2024 [...] Vipul Church M.D. MF: JEANIE Report ID: [id number] Reading Location: [place] [address] [place] Brunilda EASTMAN IMG XR PROCEDURES F inal Result * HM PAP SMEAR (07/31/2022) SCRIBED Pap test negative us Socrates Myers MD HEALTH MAINTENANCE Final Re sult from Last 3 Months or Most Recently Relevant to Health Maintenance Insurance [facility] Care Teams Exhibitions Curator Relationship Specialty Start Date End Date Mitali Bajwa NP PCP - General Family Medicine 07/28/21 Elizabeth Josue MD [address] [address] Referring Physician Obstetrics and Gynecology 07/28/21
[2024-10-01 14:43] LABS: Insulin Level Total 15.3 uIU/mL
== END 2024-09-29 11:33 | disposition home or self-care (01) ==
LOC: ANHLAB 11:34
PROVIDERS: PCP Family Medicine; Visit Provider Obstetrics & Gynecology
DX: R63.5 Abnormal weight gain (principal); Z68.30 Body mass index [BMI] 30.0-30.9, adult
CPT/HCPCS: 36415; 83525; 84443